=== PATIENT | male | born 1940 | race Caucasian/White ===

== ENCOUNTER 2022-07-14 06:59 | Observation (INO) | payer MEDICARE, BC ==
[~2022-07-14] VITALS: Ht 170.2 cm; Wt 54.4 kg
[~2022-07-14 06:59] MED LIST: ATORVASTATIN CA40 MG PO; Amlodipine Besyl5 MG PO; CLOP75 PO; METF500 PO; METO25 PO; NITR.4SL SL; Prednisone20 MG PO; ZESTORETIC 20-121 EA PO
[2022-07-14 07:39] LABS: BASOPHILS ABSOLUTE AUTO 0.01 K/mm3 (0.00-0.23); BASOPHILS PERCENT AUTO 0 % (0-2); EOSINOPHILS ABSOLUTE AUTO 0.08 K/mm3 (0.00-0.68); EOSINOPHILS PERCENT AUTO 2 % (0-6); Hematocrit 35.4 % (37.0-53.0); Hemoglobin 12.1 g/dL (13.5-17.5); IMMATURE GRAN ABSOLUTE AUTO 0.01 K/mm3 (0.00-0.10); IMMATURE GRAN PERCENT AUTO 0 % (0-1); LYMPHOCYTES ABSOLUTE AUTO 1.54 K/mm3 (0.84-5.20); LYMPHOCYTES PERCENT AUTO 30 % (21-46); MONOCYTES ABSOLUTE AUTO 0.59 K/mm3 (0.16-1.47); MONOCYTES PERCENT AUTO 11 % (4-13); Mean Corpuscular HGB 32.5 pg (26.0-34.0); Mean Corpuscular HGB Conc 34.2 g/dL (31.5-36.5); Mean Corpuscular Volume 95 fL (80-100); Mean Platelet Volume 10.3 fL (9.1-12.4); NEUTROPHILS ABSOLUTE AUTO 2.96 K/mm3 (1.96-9.15); NEUTROPHILS PERCENT AUTO 57 % (41-73); Platelet Count 144 K/mm3 (150-400); RDW Coefficient Variation 13.4 % (11.7-14.2); RDW Standard Deviation 47.4 fL (35.1-46.3); Red Blood Cell Count 3.72 M/mm3 (4.30-5.90); White Blood Cell Count 5.19 K/mm3 (4.00-11.30)
[2022-07-14 07:56] LABS: Albumin, Blood 3.4 g/dL (3.4-5.0); Albumin/Globulin Ratio 1.2 (0.8-1.8); Bilirubin, Total 0.6 mg/dL (0.1-1.0); Bun/Creatinine Ratio 21.8 (12.0-20.0); Calcium, Blood 8.8 mg/dL (8.5-10.1); Creatinine, Blood 0.92 mg/dL (0.60-1.20); Globulin, Blood 2.9 g/dL (2.2-4.0); Potassium, Blood 4.2 mmol/L (3.5-5.5); Total Protein, Blood 6.3 g/dL (6.4-8.2)
[2022-07-14 08:56] LABS: Influenza A, PCR NEGATIVE (NEGATIVE); Influenza B, PCR NEGATIVE (NEGATIVE); Resp Syncytial Virus, PCR NEGATIVE (NEGATIVE); SARS-Cov-2 (COVID-19) PCR, MMC NEGATIVE (NEGATIVE)
[2022-07-14 09:07] LABS: Source, Urine Clean Catch
[2022-07-14 09:09] LABS: Appearance, Urine Clear (Clear); Bilirubin, Urine Neg (Neg); Blood, Urine Neg (Neg); Color, Urine Yellow (P-Yellow); Glucose Qualitative, Urine 1+ (Neg); Ketones, Urine Neg (Neg); Leukocyte Esterase, Urine 1+ (Neg); Nitrite, Urine Neg (Neg); Protein, Urine Neg (Neg); Urobilinogen, Urine NORM (Normal)
[2022-07-14 09:32] LABS: Bacteria Rare /hpf; Red Blood Cells, Urine 0-2 /hpf (0-2); Spermatozoa Rare /hpf; Squamous Epithelial Cells Rare /hpf (Few)
--- NOTE | 2022-07-14 14:27 | NUR ---
WT 133.1, TOA 14:15, VITALS DONE, CALL LIGHT NEAR. DRW
[2022-07-14] MEDS ORDERED: ASPI81CH PO (14:32)
--- NOTE | 2022-07-14 16:24 | NUR ---
DR. QURESHI CONTACTED VERIFIED DNI STATUS W/ LIMITED CPR. PLAN FOR NPO @ MIDNIGHT-WAITING FOR CARDIOLOGY @ THIS TIME. REPORTED HR OF 38 PER TELE MONITOR
--- NOTE | 2022-07-14 17:55 | NUR ---
DR PURI IN TO SEE PT PLAN TO DC METOPROLOL, ZIO PATCH IN PLACE PRIOR TO DC-ORDER ENTERED, PLAN TO FOLLOW UP W/ OUT PT CARDIOLOGY TO ASSESS BRADYCARDIA BURDEN. TELE IN PLACE @ THIS TIME, DR. QURESHI NOTIFIED OF PLAN.
--- NOTE | 2022-07-14 18:21 | NUR ---
SHIFT SUMMARY PT A&OX4 AND IN PLEASENT MOOD T/O SHIFT. @ BEDSIDE. KHUSHI TO SEE PT-SEE NOTE. AWAITING ZIO PATCH. HTN, BRADYCARDIA NOTED-TELE IN PLACE. METOPROLOL LAST TAKEN APPROX. 2100 07/13/22. PT DENIES CP/PRESSURE OR DIZZINESS AT REST. TOLERATING PO INTAKE WELL @ THIS TIME. CALL LIGHT W/IN REACH.
--- NOTE | 2022-07-15 05:13 | NUR ---
INSPECTOR MULTIFOCAL LENS SUMMARY PT A/OX4. PLEASANT AND COOPERATIVE. PT SLEPT WELL T/O THE NIGHT. MULTIPLE CALLS F/LICENSED JOURNEYMAN ELECTRICIAN, LES THAKKAR, TO REPORT CYNDY EPISODES IN THE 30'S. MOST ARE BRIEF FOR A FEW SECONDS. 1 EPISODE OF SUSTAINED HR IN THE 30'S FOR 10 MINUTES. PALPATION OF RADIAL PULSE IS IRREGULAR W/PAUSES. PT OFTEN SLEEPING DURING EPISODES; WHEN WAKING THE PT; HE DENIES SYMPTOMS. CALL AT 0519 F/TELE T/REPORT 2.58 SECOND PAUSE WITH NOTED TRIGEMENY AND PCVS. PT DENIES NEED. CALL LIGHT IN REACH. WILL CONT T/MONITOR.
[2022-07-15 05:58] LABS: BASOPHILS ABSOLUTE AUTO 0.02 K/mm3 (0.00-0.23); BASOPHILS PERCENT AUTO 0 % (0-2); EOSINOPHILS ABSOLUTE AUTO 0.12 K/mm3 (0.00-0.68); EOSINOPHILS PERCENT AUTO 2 % (0-6); Hematocrit 33.3 % (37.0-53.0); Hemoglobin 11.2 g/dL (13.5-17.5); IMMATURE GRAN ABSOLUTE AUTO 0.01 K/mm3 (0.00-0.10); IMMATURE GRAN PERCENT AUTO 0 % (0-1); LYMPHOCYTES PERCENT AUTO 28 % (21-46); MONOCYTES ABSOLUTE AUTO 0.48 K/mm3 (0.16-1.47); MONOCYTES PERCENT AUTO 9 % (4-13); Mean Corpuscular HGB 32.3 pg (26.0-34.0); Mean Corpuscular HGB Conc 33.6 g/dL (31.5-36.5); Mean Corpuscular Volume 96 fL (80-100); Mean Platelet Volume 10.5 fL (9.1-12.4); NEUTROPHILS ABSOLUTE AUTO 3.17 K/mm3 (1.96-9.15); NEUTROPHILS PERCENT AUTO 60 % (41-73); Platelet Count 143 K/mm3 (150-400); RDW Coefficient Variation 13.4 % (11.7-14.2); RDW Standard Deviation 47.5 fL (35.1-46.3); Red Blood Cell Count 3.47 M/mm3 (4.30-5.90)
[2022-07-15 06:25] LABS: Albumin, Blood 2.8 g/dL (3.4-5.0); Albumin/Globulin Ratio 1.2 (0.8-1.8); Bilirubin, Total 0.7 mg/dL (0.1-1.0); Calcium, Blood 7.9 mg/dL (8.5-10.1); Creatinine, Blood 0.94 mg/dL (0.60-1.20); Globulin, Blood 2.4 g/dL (2.2-4.0); Magnesium, Blood 1.9 mg/dL (1.6-2.4); Potassium, Blood 4.2 mmol/L (3.5-5.5); Total Protein, Blood 5.2 g/dL (6.4-8.2)
--- NOTE | 2022-07-15 13:45 | NUR ---
PT DISCHARGED THE PT AND HIS VERBALIZED UNDERSTANDING OF THE DC INSTRUCTIONS. THE PTS REQUESTED THAT DR. PURI BE CALLED TO VERIFY A MEDICATION THAT SHE UNDERSTOOD NEEDED TO BE ORDERED. A CALL WAS MADE TO DR. CONNOLLY WHO VERIFIED THAT THE PT DID NOT NEED TO HAVE AMLODIPINE ORDERED AND THAT THE ORDERED LISINOPRIL WOULD BE ENOUGH FOR THE PT AT THIS TIME. A ZIO PATCH WAS PLACED ON THE PT PRIOR TO DC, AND THE PT WAS GIVEN INSTUCTIONS ON RETURNING THAT FROM THE [facility] RN. PT DECLINED A WHEELCHAIR TRANSPORT AND AMBULATED OUT WITH HIS STEADY ON HIS FEET
== END 2022-07-15 13:43 | disposition home or self-care (01) ==
LOC: ER 06:59 → MEDS 07:00 → ER 07:00 → MEDS 07:00 → ER 07-15 09:51 → MEDS 07-15 09:51
PROVIDERS: Emergency Medicine; ADMIT Family Medicine
DX: R55 Syncope and collapse (principal); R07.9 Chest pain, unspecified; R00.1 Bradycardia, unspecified; D63.1 Anemia in chronic kidney disease; N40.0 Benign prostatic hyperplasia without lower urinary tract symptoms; D64.9 Anemia, unspecified; E11.9 Type 2 diabetes mellitus without complications; E78.5 Hyperlipidemia, unspecified; Z95.1 Presence of aortocoronary bypass graft; E83.42 Hypomagnesemia; I25.119 Atherosclerotic heart disease of native coronary artery with unspecified angina pectoris; I11.0 Hypertensive heart disease with heart failure; I50.33 Acute on chronic diastolic (congestive) heart failure; N52.9 Male erectile dysfunction, unspecified; Z20.822 Contact with and (suspected) exposure to COVID-19
CPT/HCPCS: 0241U; 36415; 71045; 80053; 81001; 83735; 83880; 84443; 84484; 85025; 87086; 93005; 93010; 93246; 93306; 96365; 96366; 99285-25; A9270; G0378; J1650; J3475; J7030

== ENCOUNTER 2023-02-09 11:48 | Inpatient (IN) | payer BC ==
[2023-02-09] VITALS (7 sets, daily range): BP systolic 123–188; BP diastolic 58–80
[~2023-02-09] VITALS: Ht 172.7 cm; Wt 58.9 kg
[~2023-02-09 11:48] MED LIST changes: +ASPI81CH PO; +ATOR80 PO; -ATORVASTATIN CA40 MG PO; +LISI20 PO; +TAMS.4ER PO; -ZESTORETIC 20-121 EA PO
--- NOTE | 2023-02-09 18:44 | NUR ---
PT ADMITTED TO [facility] POST PAC[facility]ER. PT CAME IN TODAY FOR AN ELECTIVE SURGERY FOR A PACEMAKER, HE IS A TRANSFER FROM THE [facility]. PT IS A&OX4, CALLS APPROPARITELY, AND HAS AT THE BEDSIDE. THE PT IS C/O 4-5/10 PAIN IN THE LEFT CHEST WALL. HE WAS MEDICATED W/ 650MG OF TYLENOL PER MD ORDERS. PT IS HYPERTENSIVE AND DR. PURI SAID IT IS LIKELY DUE TO PAIN. HE WANTED ME TO MEDICATED THE PT FOR PAIN AND IF THE BP DOES NOT RESOVLE IN A FEW HOURS, THEN WE CAN GIVE 10MG HYDRALIZINE IV PRN (FOR SBP >160). PT HAS SUTURES, STERI-STRIPS, GLUE, PRESSURE DRESSING, GAUZE, AND TAPE OF THE INSERTION SITE. NO SIGNS OF DRAINAGE. A 1V CHEST XRAY WAS OBTAINED WHEN THE PT ARRIVED TO THE ROOM. THERE IS AN ORDER FOR A 2V CHEST XRAY IN THE MORNING. HE IS AV PACED AT 60 ON TELE, AND DENIES SOB W/ SP02 >90% ON ROOM AIR. BED ALARM ON, BED IN LOW, CALL LIGHT IN REACH. PT AND FAMILY ASSESSED/EDUCATED ON FIRE IGNITION RISK AND SAFETY.
[2023-02-10 03:56] VITALS: BP 144/69
--- NOTE | 2023-02-10 06:39 | NUR ---
SHIFT SUMMARY PATIENT ALERT AND ORINETED X4. MEDICATED TWICE PER EMAR FOR PAIN AT THE PACER SITE. PATIENT ON ROOM AIR WITH NO COMPLAINTS OF SHORNTESS OF BREATH. PACEMAKER INTERROGATED THIS MORNING. NO ACUTE ISSUES NOTED OVERNIGHT. PATIENT EDUCATED ON FIRE SAFETY AND IGNITION RISK IN THE HOSPITAL. WILL CONTINUE TO MONITOR. CALL LIGHT WITHIN REACH.
[2023-02-10 08:17] VITALS: BP 166/72
--- NOTE | 2023-02-10 11:30 | NUR ---
IV REMOVED AND PRESSURE DRESSED. PT EDUCATED ON D/C TEACHING, HE AND EXPRESSED UNDERSTANDING OF DC TEACHING AND DENY ELSAHER NEEDS
[2023-02-10] MEDS ORDERED: CEPH500 PO (11:42)
== END 2023-02-10 12:51 | disposition home or self-care (01) | DRG 244 ==
LOC: MHTC 11:48 → PCU 17:32 → MHTC 17:35 → PCU 02-10 12:51
PROVIDERS: ADMIT Student in an Organized Health Care Education/Training Program
PROC: 0JH606Z Insertion of Pacemaker, Dual Chamber into Chest Subcutaneous Tissue and Fascia, Open Approach (ICD-10-PCS; principal; 2023-02-09)
PROC: 02H63JZ Insertion of Pacemaker Lead into Right Atrium, Percutaneous Approach (ICD-10-PCS; 2023-02-09)
PROC: 02HK3JZ Insertion of Pacemaker Lead into Right Ventricle, Percutaneous Approach (ICD-10-PCS; 2023-02-09)
DX: I44.2 Atrioventricular block, complete (principal); I49.5 Sick sinus syndrome; I10 Essential (primary) hypertension; E78.5 Hyperlipidemia, unspecified; E11.9 Type 2 diabetes mellitus without complications; N40.0 Benign prostatic hyperplasia without lower urinary tract symptoms; I25.10 Atherosclerotic heart disease of native coronary artery without angina pectoris; I49.3 Ventricular premature depolarization; Z91.018 Allergy to other foods; Z91.048 Other nonmedicinal substance allergy status; I25.2 Old myocardial infarction; Z86.79 Personal history of other diseases of the circulatory system; Z98.42 Cataract extraction status, left eye; Z95.1 Presence of aortocoronary bypass graft; Z98.41 Cataract extraction status, right eye; Z98.1 Arthrodesis status; Z98.890 Other specified postprocedural states; Z79.82 Long term (current) use of aspirin; Z79.02 Long term (current) use of antithrombotics/antiplatelets; Z79.811 Long term (current) use of aromatase inhibitors; Z79.84 Long term (current) use of oral hypoglycemic drugs; Z79.899 Other long term (current) drug therapy
CPT/HCPCS: 33208; 71045; 71046; 76937; 99152; 99153; A9270; C1769; C1785; C1898; J0690; J1644; J2250; J3010; J7030; J7040; J7050